=== PATIENT | female | born 1940 | race Caucasian/White ===

== ENCOUNTER → 2016-07-24 | Outpatient (REF) | LOC: ZLAB.WCH 10:30 | DX: Z01.89 Encounter for other specified special examinations (principal) ==

== ENCOUNTER → 2016-08-19 | Outpatient (CLI) | payer MEDICARE, BC | LOC: COL.RAD 11:34 | DX: M25.511 Pain in right shoulder (principal) | CPT/HCPCS: J3301; Q9967 ==

== ENCOUNTER → 2017-05-07 | Outpatient (REF) ==
[2017-05-07 19:13] LABS: THYROID STIMULATING HORMONE 2.61 uIU/mL (0.465-4.680)
== END ==
LOC: ZLAB.WCH 18:16
PROVIDERS: Internal Medicine
DX: Z01.89 Encounter for other specified special examinations (principal)

== ENCOUNTER → 2017-06-12 | Outpatient (CLI) | payer MEDICARE, BC | LOC: COL.VAS 11:26 | DX: I70.202 Unspecified atherosclerosis of native arteries of extremities, left leg (principal) ==